=== PATIENT | male | born 1980 ===

== ENCOUNTER 2018-07-06 13:07 | Emergency (ER) | payer MEDICAID, OTHER ==
[2018-07-06 13:07] VITALS: BMI 25.2
[2018-07-06 13:24] VITALS: RESP 18; TEMP 98.7
--- NOTE | 2018-07-06 14:01 | ED PDOC ---
Arrival/HPI - General Chief Complaint: Dental Pain Time Seen by Provider: 07/06/18 13:08 Historian: Patient - History of Present Illness Narrative History of Present Illness (Text): 07/06/18 13:57 Patient is a 37yo M with PMH sickle cell disease, anxiety, depression, chronic pain presenting with tooth pain for the past 3 days. As per review of EMR, patient has multiple ED visits concerning dental abscesses. Patient is s/p I&D of 4 dental abscesses in L upper incisors. Since procedure, patient has been reports severe pain in the area that he rates 9/10. He denies radiation of the pain. He describes it as throbbing. Patient has not taken any pain medicine as he ran out of his home rx of dilaudid and percocet. He is currently on a 10 day course of Clindamycin. He reports fever of 102 yesterday and associated cough. He denies chills, chest pain, abdominal pain, nausea, vomiting, diarrhea, dysuria, numbness or tingling. Past Medical History - Past History Past History: No Previous - Infectious Disease Hx of Infectious Diseases: None - Tetanus Immunization Tetanus Immunization: Unknown - Cardiac Hx Hypertension: No - Pulmonary Hx Asthma: Yes - Neurological Hx Seizures: Yes - HEENT Hx HEENT Disorder: No - Renal Hx Renal Disorder: No Hx Kidney Stones: No - Endocrine/Metabolic Hx Hyperthyroidism: No Hx Hypothyroidism: No - Hematological/Oncological Hx Anemia: Yes Hx Sickle Cell Disease: No - Integumentary Hx Dermatological Disorder: No - Musculoskeletal/Rheumatological Hx Musculoskeletal Disorders: Yes Hx Fractures: Yes - Gastrointestinal Hx Crohn's Disease: No Hx Diverticulitis: No Hx Gall Bladder Disease: No Hx Pancreatitis: No - Genitourinary/Gynecological Hx Sexually Transmitted Diseases: No - Psychiatric Hx Anxiety: Yes Hx Depression: Yes Hx Post Traumatic Stress Disorder: Yes Hx Substance Use: No - Past Surgical History Past Surgical History: No Previous - Surgical History Hx Appendectomy: No - Anesthesia Hx Anesthesia: Yes Hx Anesthesia Reactions: No - Suicidal Assessment Feels Threatened In Home Enviroment: No Family/Social History Family/Social History: No Known Family HX Smoking Status: Former Smoker Hx Alcohol Use: No Hx Substance Use: No Hx Substance Use Treatment: No Allergies/Home Meds Allergies/Adverse Reactions: Allergies ibuprofen Allergy (Intermediate, Verified 06/08/18 14:23) ANAPHYLAXIS latex Allergy (Intermediate, Verified 06/08/18 14:23) ANAPHYLAXIS levofloxacin [From Levaquin] Allergy (Intermediate, Verified 06/08/18 14:23) ANAPHYLAXIS Penicillins Allergy (Intermediate, Verified 06/08/18 14:23) ANAPHYLAXIS povidone-iodine Allergy (Intermediate, Verified 06/08/18 14:23) RASH tramadol HCl [From Ultram] Allergy (Intermediate, Verified 06/08/18 14:23) RASH ketorolac [From Toradol] Allergy (Verified 06/08/18 14:23) RASH Home Medications: Home Meds Medication Instructions Recorded Confirmed Clindamycin [Cleocin] 300 mg PO TID 02/19/17 05/28/18 Review of Systems - Review of Systems Constitutional: Fevers Eyes: absent: Vision Changes ENT: absent: Tinnitus Respiratory: Cough. absent: SOB Cardiovascular: absent: Chest Pain Gastrointestinal: absent: Abdominal Pain, Diarrhea, Nausea, Vomiting Genitourinary Male: absent: Dysuria Musculoskeletal: absent: Neck Pain Physical Exam Vital Signs Temp Pulse Resp BP Pulse Ox 07/06/18 13:23 98.7 F 99 H 18 131/69 97 - Systems Exam Head: Present: Atraumatic, Normocephalic Pupils: Present: PERRL Extroacular Muscles: Present: EOMI Conjunctiva: Present: Normal Mouth: Present: Moist Mucous Membranes, Other (Teeth: dental carries, poor dentition. no purulent drainage noted. ) Pharnyx: No: ERYTHEMA, EXUDATE, Uvular Deviation, Soft Palate/Uvular Edema Neck: Present: Normal Range of Motion. No: Lymphadenopathy Respiratory/Chest: Present: Clear to Auscultation. No: Respiratory Distress, Wheezes, Decreased Breath Sounds, Rhonchi Cardiovascular: Present: Regular Rate and Rhythm, Normal S1, S2. No: Murmurs Abdomen: Present: Normal Bowel Sounds. No: Tenderness, Distention Upper Extremity: Present: Normal Inspection. No: Cyanosis, Edema Lower Extremity: Present: Normal Inspection. No: Edema Neurological: Present: GCS=15, Speech Normal Skin: Present: Normal Color Psychiatric: Present: Alert, Oriented x 3, Normal Insight, Normal Concentration Medical Decision Making ED Course and Treatment: 07/06/18 15:09 Patient given Percocet 10/325 and Magic Mouthwash. Reports improvement in the pain. Disposition/Present on Arrival - Present on Arrival Any Indicators Present on Arrival: No History of DVT/PE: No History of Uncontrolled Diabetes: No Urinary Catheter: No History of Decub. Ulcer: No History Surgical Site Infection Following: None - Disposition Have Diagnosis and Disposition been Completed?: Yes Diagnosis: Dental abscess Disposition: HOME/ ROUTINE Disposition Time: 15:10 Patient Problems: Current Active Problems Problem Status Onset Dental abscess Acute Condition: IMPROVED Discharge Instructions (ExitCare): Tooth Abscess (DC), Dental Pain (DC) Additional Instructions: Please follow up with your oral surgeon as instructed for further care of your dental abscess. please follow up with your primary care physician for routine care. If symptoms worsen, please return to the emergency department. Referrals: PCP,NO [Primary Care Provider] - Follow up with primary [facility] [place] [Outside] - Follow up with primary Forms: [facility] (Z[place]ian)
[2018-07-06] MEDS ORDERED: Oxycodone/Acetaminophen 10/325 mg Tab PO STA (14:34)
[2018-07-06] MEDS ORDERED: Aluminum Hydroxide/Magnesium 30 ML, DiphenhydrAMINE 75 MG, Lidocaine 2% Viscous 30 ML PO PRN (14:34)
[2018-07-06] MEDS ORDERED: Aluminum Hydroxide/Magnesium 30 ML, DiphenhydrAMINE 75 MG, Lidocaine 2% Viscous 30 ML PO STA ×2 (14:36→14:38)
[2018-07-06 16:10] VITALS: BP 134/84; PULSE 90; O2SAT 99
== END 2018-07-06 16:14 | disposition home or self-care (01) ==
LOC: ED 13:07
DX: K04.7 Periapical abscess without sinus (principal); Z87.891 Personal history of nicotine dependence; D57.1 Sickle-cell disease without crisis; F32.9 Major depressive disorder, single episode, unspecified